=== PATIENT | female | born 1955 | race Caucasian/White ===

== ENCOUNTER → 2019-02-07 10:20 | Outpatient (CLI) | payer BC ==
[2019-02-07 10:52] LABS: BASOPHILS 0.6 % (0-2); EOSINOPHILS 1.4 % (0-7); HEMATOCRIT 32.6 % (36.0-48.0); HEMOGLOBIN 10.5 g/dL (12-16); IMMATURE GRANULOCYTES 0.3 % (0-5); LYMPHOCYTES 27.8 % (15-50); MCH 27.3 pg (26.0-34.0); MCHC 32.2 g/dL (31.0-37.0); MCV 84.9 fL (80.0-100.0); MONOCYTES 10.9 % (2-11); PLATELET COUNT 64 10x3/uL (130-400); RBC 3.84 10x6/uL (4.00-5.40); RDW 13.2 % (11.5-14.5); WBC 3.5 10x3/uL (4.8-10.8)
[2019-02-07 11:55] LABS: PLATELET ESTIMATE DECREASED
== END | disposition home or self-care (01) ==
LOC: D.LAB 10:20
PROVIDERS: Internal Medicine Gastroenterology
DX: R11.0 Nausea (principal); R19.5 Other fecal abnormalities; R14.3 Flatulence; R14.0 Abdominal distension (gaseous); R10.13 Epigastric pain

== ENCOUNTER 2019-08-10 07:48 | Outpatient (CLI) | payer BC ==
[~2019-08-10] VITALS: Ht 167.6 cm; Wt 77.3 kg
[2019-08-10 08:34] LABS: CALC OSMOLALITY 290 mosm/kg (275-300); CALCIUM 9.7 mg/dL (8.5-10.1); CHLORIDE - SERUM 104 mmol/L (98-107); CREATININE - SERUM 0.8 mg/dL (0.6-1.3); GLUCOSE 165 mg/dL (74-106); POTASSIUM - SERUM 3.9 mmol/L (3.5-5.1); SODIUM 143 mmol/L (136-145); UREA NITROGEN 18 mg/dL (7-18); eGFR NON AFRICAN AMERICAN 77 mL/min (90-120)
[2019-08-10] MEDS ORDERED: COZAAR50 MG PO (08:37)
[2019-08-10] MEDS ORDERED: FARXIGA10 MG PO (08:37)
[2019-08-10] MEDS ORDERED: METFORMIN HCL500 M1 PO (08:37)
[2019-08-10 08:38] LABS: CARBON DIOXIDE 29.8 mmol/L (21.0-32.0)
[2019-08-10] MEDS ORDERED: ZOCOR20 MG PO (08:38)
[2019-08-10] MEDS ORDERED: OMEPRAZOLE20 M1 PO (08:38)
[2019-08-10] MEDS ORDERED: ASCORBIC ACID500 MG PO (08:39)
[2019-08-10] MEDS ORDERED: ZETIA10 MG PO (08:39)
[2019-08-10] MEDS ORDERED: FERROUS GLUCON324 MG PO (08:39)
[2019-08-10] MEDS ORDERED: CALCIUM 600 +1 EAC3 PO (08:40)
[2019-08-10 08:41] LABS: INR 1.05 (0.85-1.17); PROTIME 13.2 SECONDS (11.6-15.0)
[2019-08-10] MEDS ORDERED: B12 (08:41)
[2019-08-10] MEDS ORDERED: POTASSIUM99 M1 PO (08:42)
[2019-08-10] MEDS ORDERED: MAG-OXIDE400 MG PO (08:43)
[2019-08-10] MEDS ORDERED: [UNRECOGNIZED DRUG - OTHER] (08:44)
[2019-08-10 08:59] VITALS: Ht 167.6 cm; Wt 77.3 kg
[2019-08-10 09:13] LABS: BASOPHILS 0.3 % (0-2); EOSINOPHILS 1.1 % (0-7); HEMATOCRIT 44.2 % (36.0-48.0); HEMOGLOBIN 14.7 g/dL (12-16); LYMPHOCYTES 15.4 % (15-50); MCH 29.9 pg (26.0-34.0); MCHC 33.3 g/dL (31.0-37.0); MCV 89.8 fL (80.0-100.0); MEAN PLATELET VOLUME 10.1 fL (7.4-10.4); MONOCYTES 13.2 % (2-11); PLATELET COUNT 70 10x3/uL (130-400); RBC 4.92 10x6/uL (4.00-5.40); RDW 15.9 % (11.5-14.5); WBC 3.7 10x3/uL (4.8-10.8)
[2019-08-10 11:21] LABS: PLATELET ESTIMATE DECREASED
[2019-08-10 11:23] LABS: ANISOCYTOSIS OCC
== END 2019-08-10 14:43 ==
LOC: D.SP 07:48 → D.CT 10:00 → D.SP 10:00
PROVIDERS: Radiology Vascular & Interventional Radiology; ATTEND Internal Medicine Gastroenterology
DX: K74.60 Unspecified cirrhosis of liver (principal)

== ENCOUNTER → 2019-12-14 09:32 | Outpatient (CLI) | payer BC ==
[2019-08-10 08:59] VITALS: BMI 27.5
[~2019-12-14 09:32] MED LIST: ASCORBIC ACID500 MG PO; B12; CALCIUM 600 +1 EAC3 PO; COZAAR50 MG PO; FARXIGA10 MG PO; FERROUS GLUCON324 MG PO; MAG-OXIDE400 MG PO; METFORMIN HCL500 M1 PO; OMEPRAZOLE20 M1 PO; POTASSIUM99 M1 PO; ZETIA10 MG PO; ZOCOR20 MG PO; [UNRECOGNIZED DRUG - OTHER]
[2019-12-14 10:34] LABS: BASOPHILS 0.6 % (0-2); EOSINOPHILS 2.2 % (0-7); HEMATOCRIT 42.1 % (36.0-48.0); HEMOGLOBIN 14.5 g/dL (12-16); LYMPHOCYTES 23.8 % (15-50); MCH 31.5 pg (26.0-34.0); MCHC 34.4 g/dL (31.0-37.0); MCV 91.3 fL (80.0-100.0); MEAN PLATELET VOLUME 8.9 fL (7.4-10.4); MONOCYTES 11.9 % (2-11); NEUTROPHILS 61.5 % (40-80); PLATELET COUNT 62 10x3/uL (130-400); RBC 4.61 10x6/uL (4.00-5.40); RDW 12.5 % (11.5-14.5); WBC 3.2 10x3/uL (4.8-10.8)
[2019-12-14 10:44] LABS: BILIRUBIN - DIRECT 0.29 mg/dL (0.00-0.30); BILIRUBIN - INDIRECT 0.51 mg/dL (0.00-1.00); BILIRUBIN - TOTAL 0.8 mg/dL (0.2-1.3); PROTEIN - SERUM 7.2 g/dL (6.4-8.2)
[2019-12-14 11:10] LABS: INR 1.12 (0.85-1.17); PROTIME 14.3 SECONDS (11.6-15.0)
[2019-12-14 14:04] LABS: ANISOCYTOSIS OCC; PLATELET ESTIMATE DECREASED
== END | disposition home or self-care (01) ==
LOC: D.LAB 09:32 → D.US 10:00
PROVIDERS: ATTEND Internal Medicine Gastroenterology
DX: K74.60 Unspecified cirrhosis of liver (principal)

== ENCOUNTER → 2020-06-18 09:39 | Outpatient (CLI) | payer BC ==
[2019-08-10 08:59] VITALS: BMI 27.5
[2020-06-18 10:42] LABS: BASOPHILS 0.9 % (0-2); EOSINOPHILS 1.1 % (0-7); HEMATOCRIT 42.3 % (36.0-48.0); HEMOGLOBIN 14.5 g/dL (12-16); IMMATURE GRANULOCYTES 0.3 % (0-5); LYMPHOCYTES 21.8 % (15-50); MCH 31.4 pg (26.0-34.0); MCHC 34.3 g/dL (31.0-37.0); MCV 91.6 fL (80.0-100.0); MEAN PLATELET VOLUME 9.1 fL (7.4-10.4); MONOCYTES 11.2 % (2-11); NEUTROPHILS 64.7 % (40-80); PLATELET COUNT 66 10x3/uL (130-400); RBC 4.62 10x6/uL (4.00-5.40); RDW 12.5 % (11.5-14.5); WBC 3.5 10x3/uL (4.8-10.8)
[2020-06-18 10:51] LABS: INR 1.09 (0.85-1.17); PROTIME 14.1 SECONDS (11.6-15.0)
[2020-06-18 10:56] LABS: ALBUMIN 4.1 g/dL (3.4-5.0); BILIRUBIN - DIRECT 0.26 mg/dL (0.00-0.30); BILIRUBIN - INDIRECT 0.83 mg/dL (0.00-1.00); BILIRUBIN - TOTAL 1.09 mg/dL (0.2-1.3); PROTEIN - SERUM 7.3 g/dL (6.4-8.2)
[2020-06-18 13:48] LABS: PLATELET ESTIMATE DECREASED
[2020-06-18 13:49] LABS: ANISOCYTOSIS OCC
== END | disposition home or self-care (01) ==
LOC: D.LAB 09:39 → D.US 10:00
PROVIDERS: ATTEND Internal Medicine Gastroenterology
DX: K74.60 Unspecified cirrhosis of liver (principal)

== ENCOUNTER → 2021-02-11 10:10 | Outpatient (CLI) | payer BC ==
[2019-08-10 08:59] VITALS: BMI 27.5
[2021-02-11 11:22] LABS: BASOPHILS 0.8 % (0-2); EOSINOPHILS 1.6 % (0-7); HEMATOCRIT 42.4 % (36.0-48.0); HEMOGLOBIN 14.6 g/dL (12-16); LYMPHOCYTE ABS# 0.95 10x3/uL (1.18-3.74); LYMPHOCYTES 25.5 % (15-50); MCH 30.7 pg (26.0-34.0); MCHC 34.4 g/dL (31.0-37.0); MCV 89.3 fL (80.0-100.0); MEAN PLATELET VOLUME 9.4 fL (7.4-10.4); MONOCYTES 12.1 % (2-11); NEUTROPHIL ABS# 2.23 10x3/uL (1.56-6.13); PLATELET COUNT 66 10x3/uL (130-400); RBC 4.75 10x6/uL (4.00-5.40); WBC 3.7 10x3/uL (4.8-10.8)
[2021-02-11 11:28] LABS: PLATELET ESTIMATE DECREASED
[2021-02-11 11:33] LABS: INR 1.16 (0.85-1.17); PROTIME 13.8 SECONDS (11.6-15.0)
[2021-02-11 11:36] LABS: ALBUMIN 4.2 g/dL (3.4-5.0); BILIRUBIN - DIRECT 0.29 mg/dL (0.00-0.30); BILIRUBIN - INDIRECT 0.74 mg/dL (0.00-1.00); BILIRUBIN - TOTAL 1.03 mg/dL (0.2-1.3); PROTEIN - SERUM 7.4 g/dL (6.4-8.2)
== END | disposition home or self-care (01) ==
LOC: D.US 09:15
PROVIDERS: ATTEND Internal Medicine Gastroenterology
DX: K74.60 Unspecified cirrhosis of liver (principal)

== ENCOUNTER 2021-03-20 10:20 | Day surgery (SDC) | payer BC ==
[~2021-03-20] VITALS: Ht 167.6 cm; Wt 77.3 kg
--- NOTE | ~2021-03-20 | OP ---
PATIENT NAME: NIKKIE BAIRD MEDICAL RECORD: [id number] :59 LOCATION:D.OPS ADMISSION DATE: SURGEON: KACI HOLGUIN MD DATE OF OPERATION: 03/20/2021 PREOPERATIVE DIAGNOSES: This is a 65-year-old female with a history of cirrhosis and history of esophageal varices. MEDICATION: Propofol 350 mg per anesthesia. DESCRIPTION OF PROCEDURE: Upper endoscopy was performed. The endoscope was advanced through the mouth and advanced to the second part of the duodenum. The proximal esophagus was normal. In the mid and distal esophagus, were grade III and grade IV esophageal varices. There was a distal varix that was grade IV. This was banded with one esophageal band that was successfully placed. The stomach and duodenum were normal. The patient tolerated the procedure well. There were no immediate complications. FINAL DIAGNOSES: Grade III and grade IV esophageal varices with one esophageal band placed. Normal stomach, normal duodenum. PLAN: Advance diet. Return to GI office. Recommend repeat upper endoscopy in 6 months to one year for followup of obliteration of any further large varices. TRANSINT:[id number] Voice Confirmation ID: [id number] DOCUMENT ID: [id number] KACI HOLGUIN MD CC: [id number] DICTATION DATE: 03/20/21 1204 FIRE ALARM MECHANIC: 03/20/21 1214 PRE [facility] [address] [place] [address]
[2021-03-20 10:21] LABS: BASOPHILS 0.6 % (0-2); EOSINOPHILS 1.1 % (0-7); HEMATOCRIT 40.1 % (36.0-48.0); HEMOGLOBIN 13.5 g/dL (12-16); LYMPHOCYTES 22.7 % (15-50); MCH 29.8 pg (26.0-34.0); MCHC 33.7 g/dL (31.0-37.0); MCV 88.3 fL (80.0-100.0); MEAN PLATELET VOLUME 6.8 fL (7.4-10.4); MONOCYTES 9.1 % (2-11); NEUTROPHILS 66.5 % (40-80); PLATELET COUNT 70 10x3/uL (130-400); RBC 4.54 10x6/uL (4.00-5.40); RDW 14.1 % (11.5-14.5); WBC 3.2 10x3/uL (4.8-10.8)
[2021-03-20 10:30] LABS: CALC OSMOLALITY 283 mosm/kg (275-300); CALCIUM 8.9 mg/dL (8.5-10.1); CARBON DIOXIDE 29.5 mmol/L (21.0-32.0); CHLORIDE - SERUM 104 mmol/L (98-107); CREATININE - SERUM 0.7 mg/dL (0.6-1.3); GLUCOSE 153 mg/dL (74-106); POTASSIUM - SERUM 3.9 mmol/L (3.5-5.1); SODIUM 141 mmol/L (136-145); UREA NITROGEN 13 mg/dL (7-18); eGFR NON AFRICAN AMERICAN 90 mL/min (90-120)
[2021-03-20 10:40] LABS: PLATELET ESTIMATE DECREASED
[2021-03-20 10:43] VITALS: Ht 167.6 cm; Wt 77.3 kg
[2021-03-20] MEDS ORDERED: ISOSORBIDE MONO30 M1 PO (10:46)
[2021-03-20] MEDS ORDERED: JARDIANCE10 MG PO (10:46)
--- NOTE | 2021-03-20 13:05 | NUR ---
DC TEACHING COMPLETED, VERBALIZED UNDERSTANDING. PIV REMOVED, CATHETER INTACT. PT DRESSING SELF. 1320 PT DC'D VIA WC ACCOMPANIED BY THIS NURSE TO POV WITH ALL BELONGINGS AND DC PACKET.
== END 2021-03-20 13:20 | disposition home or self-care (01) ==
LOC: D.OPS 10:20
PROVIDERS: Anesthesiology; ATTEND Internal Medicine Gastroenterology
DX: I85.00 Esophageal varices without bleeding (principal); R07.9 Chest pain, unspecified; K74.60 Unspecified cirrhosis of liver; E11.9 Type 2 diabetes mellitus without complications; Z79.84 Long term (current) use of oral hypoglycemic drugs